=== PATIENT | female | born 1990 ===

== ENCOUNTER 2024-07-01 07:29 | Outpatient (CLI) | payer OTHER, MEDICAID, SELFPAY ==
--- NOTE | 2024-07-01 07:34 | USR_ITS ---
PROCEDURE INFORMATION: Exam: US After First Trimester, Transabdominal Exam date and time: 07/01/2024 7:54 AM Age: 33 years old Clinical indication: Screening exam; Routine US, uterus; Additional info: Anatomy check/supervision of normal first /2nd trim LABS AND CLINICAL REPORTS: Last menstrual period start date: 02/05/2024 Gestational age (Established): 21 w 0 d Estimated due date (Established): 11/11/2024 TECHNIQUE: Imaging protocol: Real-time transabdominal obstetrical ultrasound of the maternal pelvis and a second or third trimester with image documentation. COMPARISON: No relevant prior studies available. FINDINGS: Gestation: Single live intrauterine gestation. heart rate: 142 bpm. presentation and position: Breech. Placenta: Unremarkable. No subchorionic bleed. Placenta is anterior. Amniotic fluid (Qualitative): Amniotic fluid is normal for gestational age. ANATOMY: midline falx: Normal cerebellum: Normal lateral ventricles: Normal cisterna magna: Normal choroid plexus: Normal face: Normal heart four-chamber view, heart size and position: Normal heart right ventricular outflow tract: Normal heart left ventricular outflow tract: Normal kidneys: Normal stomach: Normal urinary bladder: Normal spine: Normal Umbilical cord and insertion: Normal. Normal 3 vessel cord upper limbs: Normal lower limbs: Normal external genitalia: Normal BIOMETRY: Gestational age (AUA): 21 weeks 1 day Estimated due date (AUA): 11/10/2024 Estimated weight: 404.81 g. EFW by AC, BPD, FL, HC, [place] 1985, 55% Biparietal diameter (BPD): 5.04 cm. EGA (BPD) is 21 w 2 d. 59.9 % percentile Head circumference (HC): 18.88 cm. EGA (HC) is 21 w 1 d. 48.4 % percentile Abdominal circumference (AC): 16.2 cm. EGA (AC) is 21 w 2 d. 52.7 % percentile Femur length (FL): 3.5 cm. EGA (FL) is 21 w 0 d. 42.4 % percentile HC/AC: 1.17. (Normal range: 1.06 - 1.25) FL/HC: 18.54. (Normal range: 16.26 - 20.29) FL/BPD: 69.44 FL/AC: 21.6. (Normal range: 20 - 24) MATERNAL: Uterus: Unremarkable. Cervix: Cervical length measures 4.7 cm. Right ovary/adnexa: Obscured by lack of adequate acoustic window. Left ovary/adnexa: Obscured by lack of adequate acoustic window. Intraperitoneal space: No intraperitoneal free fluid. US/US OB >= 14 weeks fetus [id number] IMPRESSION: Single live intrauterine gestation with estimated age of 21 weeks 1 day and weight of 404.81 g.
== END 2024-07-01 07:30 | disposition home or self-care (01) ==
LOC: RAD 07:29
PROVIDERS: Visit Provider Family Medicine
DX: Z34.02 Encounter for supervision of normal first pregnancy, second trimester (principal)
CPT/HCPCS: 76805

== ENCOUNTER 2024-10-16 00:29 | Inpatient (IN) | payer BC, MEDICAID, SELFPAY ==
[2024-10-15 22:35] VITALS: BMI 27.3
[2024-10-15 22:47] VITALS: BP 135/84; PULSE 68
[2024-10-15 22:58] VITALS: BP 131/86; PULSE 61
--- NOTE | 2024-10-15 23:16 | P.HP_ITS ---
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 Complains of contractions starting shortly after rupture of membranes. Contractions have become stronger and are approximately every 4-5 minutes. Denies vaginal bleeding. Good movement. 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 course complicated by failed 1 hr GTT with passed 3hr GTT. care was good and starting in first trimester- presented as transfer of care from [place], [place] Labs Blood type OB HPI: O (+) positive Rubella: Immune RPR: Negative GBS: Unknown HBsAG: Negative Other Lab Information: Ab screen negative HIV negative HCV Ab negative INitial H/H 14.1/41.3 Pap smear NILM, HPV negative 1hr GTT failed (163) 3hr GTT passed (89, 84, 125, 88) 3rd trimester H/H 12.8/37.0 Anatomy US- EFW 55% Review of Systems 2 Const: Denies: fever(s) or chills Card: Denies: chest pain or palpitations Resp: Denies: dyspnea or wheezing GI: Reports: nausea and vomiting Medications/Allergies Allergies Allergy/AdvReac Type Severity Reaction Status Date / Time No Known Allergies Allergy Verified 10/15/24 23:39 History History History 2 1 Term 0 0 Miscarriages/Ectopic 0 Living Children 0 Vitals/I&O/Wt Last Vital Signs Pulse 61 10/15/24 22:58 BP 131/86 10/15/24 22:58 Physical Exam 2 Const: COMMON NORMALS: no acute distress, healthy appearing and alert Resp: COMMON NORMALS: normal respiratory effort and clear to auscultation bilaterally Cardio: COMMON NORMALS: regular rate, regular rhythm, S1 normal heart sound present, S2 normal heart sound present and No murmurs present (Cardio) GI: OTHER: gravid S=D Extremity: NARRATIVE EXTREMITY EXAM: No LE edema Data 10/15/24 23:55 Results Labs OB ([facility]): 2 Blood Type Pending 10/15/24 Antibody Screen Pending 10/15/24 Hct 37.5 % (36-47) 10/15/24 Hgb 13.30 g/dL (11.27-16.99) 10/15/24 Rho(D) Type Pending 10/15/24 Plt Count 164 10^3/cmm (157-399) 10/15/24 A&P Assessment and plan (1) premature rupture of membranes: Plan 33yo at 36w1d admitted for PPROM. Initial SVE 4.5/95/-2 per RN Category I FHT, [place] q3-4 ctx Routine CBC, blood typing. Fentanyl protocol, may have epidural if desired. Intermittent EFM as long as Category I and unless Continuous EFM indicated GBS ppx due to GBS unknown and <37 weeks. Expectant management- discussed plan of care with patient and agreeable to proceed. Attestations 2 Medical Necessity Statement*: Mya Mirta Mcdaniel's hospital stay will require greater than 2 midnights for labor and delivery and care. Coding Level of Care Code Acute Code for Chg Fwd Diagnoses premature rupture of membranes O42.919
[2024-10-15 23:29] VITALS: BP 132/79; PULSE 81
[2024-10-16] VITALS (22 sets, daily range): BP systolic 100–142; BP diastolic 51–85; PULSE 60–89; RESP 14–18; TEMP 36.7–36.9; O2SAT 96; BMI 27.3
[2024-10-16 00:21] LABS: Basophils % 0.2 %; Eosinophils # 0.1 10^3/uL (0.0-0.8); Hematocrit 37.5 % (36-47); Lymphocytes # 1.8 10^3/uL (0.8-4.8); Lymphocytes % 15.9 %; Mean Corpuscular HGB Conc 35.5 g/dL (30-55); Mean Corpuscular Hemoglobin 31.4 pg (27-33); Mean Corpuscular Volume 88.4 fl (85-98); Mean Platelet Volume 11.5 fL (7.4-10.4); Monocytes # 0.4 10^3/uL (0.2-0.9); Monocytes % 3.8 %; Neutrophils # 8.77 10^3/uL (1.8-7.7); Neutrophils % 78.7 %; Nucleated Red Blood Cells % 0 %; Platelet Count 164 10^3/cmm (157-399); Red Blood Count 4.24 10^6/uL (3.85-5.65); Red Cell Distribution Width 12.6 % (12.1-15.1); White Blood Count 11.14 10^3/uL (3.29-11.43)
[2024-10-16] MEDS: oxytocin 30 UNIT/500 ML BAG 600 UNIT IV (05:46)
[2024-10-16] MEDS: dextrose 5%-sod chloride 0.45% 1,000 ML 125 ML IV (05:46)
[2024-10-16] MEDS: lidocaine 2% INJ 20 mL INJECTION (05:47)
--- NOTE | 2024-10-16 06:14 | P.PCNOB_ITS ---
Delivery Note: Date of delivery: October 16, 2024 Pre-delivery diagnoses: PPROM Post-delivery diagnoses: delivery of viable male Procedure: Spontaneous vaginal delivery Delivering Physician: Nayely Frances DO Estimated blood loss (mL): 150 Pre-Delivery Course: Admitted on 11/11/2024 after SROM at home at 2030. Of note after initial admission note patient declined GBS prophylaxis after discussion of risks and benefits. Initial SVE 4.5/95/-2 and she progressed appropriately to complete. Delivery: Patient progressed to complete. Patient placed in lithotomy position. Patient pushed with adequate effort. Head delivered in CECILY position, tight nuchal cord was present and unable to be reduced and was delivered through. Shoulders and rest of body delivered without difficulty with no anesthesia. Cord reduced after delivery. Mouth and nares bulb suctioned. Cord clamped and cut after 1 minute delay. placed on maternal abdomen. Placenta spontaneously delivered and noted to be intact. Pitocin started. Fundus was noted to be firm with massage. The vagina and cervix were inspected and right first-degree periurethral and midline first-degree lacerations were noted. Repaired with 3-0 Vicryl. Fundus was again noted to be firm. Male born at 0537 with 8/9 weighing 2500 g and measuring 19 inches in length, 12.25 head circumference and 11.5 chest circumference. Placenta noted to be intact with centrally inserted umbilical cord with three- vessel cord. Complications: Maternal none Infant none History History History 1 Term 0 1 Miscarriages/Ectopic 0 Living Children 1 A&P Assessment and plan (1) Spontaneous vaginal delivery: (2) delivery: Coding Level of Care Code Acute Code for Chg Fwd Diagnoses Spontaneous vaginal delivery O80 delivery O60.10X0
[2024-10-16] MEDS: ibuprofen 800 mg tablet PO ×2 (08:27→20:48)
[2024-10-16] MEDS: benzocaine-menthol 78 gm Canister 1 SPRAY TOPICAL (08:27)
[2024-10-16] MEDS: docusate sodium 100 mg Capsule PO ×2 (08:27→20:48)
[2024-10-16] MEDS: PRENATAL VIT NO.130/IRON/FOLIC 1 EACH TABLET PO (08:27)
[2024-10-16 17:23] LABS: Hematocrit 34.1 % (36-47); Mean Corpuscular HGB Conc 34.3 g/dL (30-55); Mean Corpuscular Volume 90.5 fl (85-98); Mean Platelet Volume 11.2 fL (7.4-10.4); Platelet Count 152 10^3/cmm (157-399); Red Blood Count 3.77 10^6/uL (3.85-5.65); White Blood Count 12.11 10^3/uL (3.29-11.43)
[2024-10-17 06:29] VITALS: BP 126/79; PULSE 80; RESP 16; O2SAT 97
[2024-10-17] MEDS: ibuprofen 800 mg tablet PO ×3 (09:46→21:34)
[2024-10-17] MEDS: docusate sodium 100 mg Capsule PO (09:46)
[2024-10-17] MEDS: PRENATAL VIT NO.130/IRON/FOLIC 1 EACH TABLET PO (09:46)
[2024-10-17 11:00] VITALS: BP 98/59; PULSE 65; RESP 15; TEMP 37.1
--- NOTE | 2024-10-17 12:56 | P.PN_ITS ---
SUPERVISOR MAINTENANCE Subjective 2 Subjective: Interval history: Doing well overnight. Reports bleeding is minimal. She has some soreness but otherwise her pain is well-controlled. She is breast-feeding but has had some difficulty with latching and is syringe feeding but does report baby had a tongue-tie and that was clipped today. Reports normal urination and bowel movement. Vitals/I&O/Wt Last Vital Signs Temp 98.8 F 10/17/24 11:00 Pulse 65 10/17/24 11:00 Resp 15 10/17/24 11:00 BP 98/59 10/17/24 11:00 Pulse Ox 97 10/17/24 06:29 O2 Del Method Room Air 10/17/24 06:29 Weight last 48 hrs Weight 140 lb Weight 140 lb Physical Exam 2 Const: COMMON NORMALS: no acute distress, healthy appearing and alert Resp: COMMON NORMALS: normal respiratory effort and clear to auscultation bilaterally AUSCULTATION: clear to auscultation bilaterally Cardio: COMMON NORMALS: regular rate, regular rhythm, S1 normal heart sound present, S2 normal heart sound present and No murmurs present (Cardio) RATE: regular rate RHYTHM: regular rhythm HEART SOUNDS: S1 normal heart sound present and S2 normal heart sound present : OTHER: Uterine fundus firm and below the umbilicus Extremity: NARRATIVE EXTREMITY EXAM: No LE edema Neuro: SENSORIUM/ORIENTATION: Yes alert Data 10/16/24 17:10 A&P Assessment and plan (1) Spontaneous vaginal delivery: (2) delivery: Plan 33-year-old G1 now P1 status post spontaneous vaginal delivery without complication, day #1. hemoglobin 11.7 from 13.3 on admission and IV has been discontinued. Encourage ambulation, normal diet. May shower. Routine care. Anticipate discharge home tomorrow. Attestations 2 Medical Necessity Statement*: Mya Mcdaniel's hospital stay will require greater than 2 midnights for labor and delivery and care. Coding Level of Care Code Acute Code for Chg Fwd Diagnoses Spontaneous vaginal delivery O80 delivery O60.10X0
[2024-10-17 18:18] VITALS: BP 106/68; PULSE 74; RESP 18
[2024-10-17 21:35] VITALS: BP 118/71; PULSE 78; RESP 16; TEMP 36.8; O2SAT 98
[2024-10-18 04:14] VITALS: BP 120/78; PULSE 72; RESP 16; TEMP 36.4; O2SAT 99
--- NOTE | 2024-10-18 07:38 | P.DS_ITS ---
Discharge Providers IMAGING TECHNICIAN Date of Admission: 10/16/24 00:29 Date of Discharge: 10/18/24 Attending Provider at Admission: Nayely Frances DO Attending Provider at Discharge: Nayely Frances DO Diagnoses at Discharge Discharge Diagnosis (1) Spontaneous vaginal delivery: Status: Acute (2) delivery: Status: Acute Reason for Visit Reason for Visit: contractions, possible ROM Hospital Course Hospital Course Pre-Delivery Course: Admitted on 10/15/2024 after SROM at home at 2030. Of note after initial admission note patient declined GBS prophylaxis after discussion of risks and benefits. Initial SVE 4.5/95/-2 and she progressed appropriately to complete. Delivery: Patient progressed to complete. Patient placed in lithotomy position. Patient pushed with adequate effort. Head delivered in CECILY position, tight nuchal cord was present and unable to be reduced and was delivered through. Shoulders and rest of body delivered without difficulty with no anesthesia. Cord reduced after delivery. Mouth and nares bulb suctioned. Cord clamped and cut after 1 minute delay. placed on maternal abdomen. Placenta spontaneously delivered and noted to be intact. Pitocin started. Fundus was noted to be firm with massage. The vagina and cervix were inspected and right first-degree periurethral and midline first-degree lacerations were noted. Repaired with 3-0 Vicryl. Fundus was again noted to be firm. Male born at 0537 with 8/9 weighing 2500 g and measuring 19 inches in length, 12.25 head circumference and 11.5 chest circumference. Placenta noted to be intact with centrally inserted umbilical cord with three- vessel cord. Complications: Maternal none none course: Patient underwent on 10/16/24. course was uncomplicated. Following delivery patient ambulated well, tolerated a normal diet without nausea or vomiting. Pain was well-controlled on PO medications, with some difficulty latching, no leg/calf pain, no calf/leg swelling, normal urination, passing gas and normal bowel movements. Vaginal bleeding thin lochia and decreasing. labs significant for hemoglobin of 11.7 down from 13.3 on admission. Follow-up planned for 2 and 6 weeks . Warning signs for endometritis, pre-eclampsia, DVT/PE, mastitis were reviewed, discussed additional warning signs including increased vaginal bleeding, worsening abdominal pain. Pelvic rest and activity precautions reviewed as well. She is discharged on 10/18/24 in stable condition. Information Peripartum Data: Delivery Method: Vaginal Physical Exam Const: COMMON NORMALS: no acute distress, healthy appearing and alert Resp: COMMON NORMALS: normal respiratory effort and clear to auscultation bilaterally AUSCULTATION: clear to auscultation bilaterally Cardio: COMMON NORMALS: regular rate, regular rhythm, S1 normal heart sound present, S2 normal heart sound present and No murmurs present (Cardio) RATE: regular rate RHYTHM: regular rhythm HEART SOUNDS: S1 normal heart sound present and S2 normal heart sound present : OTHER: Uterine fundus firm and below the umbilicus Extremity: NARRATIVE EXTREMITY EXAM: No LE edema Neuro: SENSORIUM/ORIENTATION: Yes alert History History History 1 Term 0 1 Miscarriages/Ectopic 0 Living Children 1 Discharge Data Studies Completed and Pending Pending at discharge Category Date Time Status Retype for Patiets ABO/Rh Routine Lab 10/16/24 17:10 Received Laboratory Results WBC 12.11 10^3/uL (3.29-11.43) H 10/16/24 17:10 Corrected WBC Cancelled 10/15/24 23:18 RBC 3.77 10^6/uL (3.85-5.65) L 10/16/24 17:10 Hgb 11.70 g/dL (11.27-16.99) 10/16/24 17:10 Hct 34.1 % (36-47) L 10/16/24 17:10 MCV 90.5 fl (85-98) 10/16/24 17:10 MCH 31.0 pg (27-33) 10/16/24 17:10 MCHC 34.3 g/dL (30-55) 10/16/24 17:10 RDW 13.0 % (12.1-15.1) 10/16/24 17:10 Plt Count 152 10^3/cmm (157-399) L 10/16/24 17:10 MPV 11.2 fL (7.4-10.4) H 10/16/24 17:10 Gran % Cancelled 10/15/24 23:18 Neut % (Auto) 78.7 % 10/15/24 23:55 Lymph % (Auto) 15.9 % 10/15/24 23:55 [place] % (Auto) 3.8 % 10/15/24 23:55 Eos % (Auto) 1.0 % 10/15/24 23:55 Baso % (Auto) 0.2 % 10/15/24 23:55 Neut # (Auto) 8.77 10^3/uL (1.8-7.7) H 10/15/24 23:55 Lymph # (Auto) 1.8 10^3/uL (0.8-4.8) 10/15/24 23:55 [place] # (Auto) 0.4 10^3/uL (0.2-0.9) 10/15/24 23:55 Eos # (Auto) 0.1 10^3/uL (0.0-0.8) 10/15/24 23:55 Baso # (Auto) 0.0 10^3/uL (0.0-0.1) 10/15/24 23:55 Absolute Gran (auto) Cancelled 10/15/24 23:18 Nucleated RBC % (auto) 0 % 10/15/24 23:55 Nucleated RBCs # 0.0 /100WBC 10/15/24 23:55 Blood Type O Positive 10/15/24 23:55 Rho(D) Type Rh positive 10/15/24 23:55 Antibody Screen Negative 10/15/24 23:55 Vitals Last Vital Signs Temp 97.6 F 10/18/24 04:14 Pulse 72 10/18/24 04:14 Resp 16 10/18/24 04:14 BP 120/78 10/18/24 04:14 Pulse Ox 99 10/18/24 04:14 O2 Del Method Room Air 10/18/24 04:14 Results Labs OB ([facility]): Blood Type O Positive 10/15/24 Antibody Screen Negative 10/15/24 Hct 34.1 % (36-47) L 10/16/24 Hgb 11.70 g/dL (11.27-16.99) 10/16/24 Rho(D) Type Rh positive 10/15/24 Plt Count 152 10^3/cmm (157-399) L 10/16/24 Discharge Plan Discharge Patient Disposition: Home Condition: Stable Prescriptions: New ibuprofen 800 mg Tablet 800 mg PO TID Qty: 90 0RF docusate sodium 100 mg Capsule 100 mg PO BID Qty: 60 0RF Discharge Orders: Discharge Order (Routine); Ordered 10/18/24 Ordered By: Nayely Frances Referrals: Nayely Frances DO [Physician] - 11/02/24 2:45 pm (* Your 2 week appointment is with Dr. Frances on 11/02/2023 2:45pm * Your 6 week appointment is 12/07/2023 at 3:00pm) Discharge Diet: Usual diet Discharge Activity: Increase activity as tolerated Patient Instructions: Depression (DC), Preeclampsia and Eclampsia After Delivery (GEN), Hemorrhage (DC), OB Discharge Report, OB Food/Drug Interaction Guide, Opioid Safety, OB Home Care, OB Vaginal Deliveries, Abnormal Bleeding Activity Restrictions/Additional Instructions: Pelvic rest for 6 weeks. Follow-up with Dr. Frances at 2 and 6 weeks . Discharge Attestations IMAGING TECHNICIAN Time Spent in Discharge Care*: greater than 30 min Coding Level of Care Code Acute Code for Chg Fwd Diagnoses Spontaneous vaginal delivery O80 delivery O60.10X0
[2024-10-18] MEDS: PRENATAL VIT NO.130/IRON/FOLIC 1 EACH TABLET PO (09:32)
[2024-10-18] MEDS: docusate sodium 100 mg Capsule PO (09:32)
[2024-10-18] MEDS: ibuprofen 800 mg tablet PO (09:32)
[2024-10-18 09:33] VITALS: BP 115/67; PULSE 72; RESP 15; TEMP 36.4; O2SAT 99
[2024-10-18 14:10] VITALS: BP 116/70; PULSE 70; RESP 15; TEMP 36.6; O2SAT 99
[2024-10-18 14:20] VITALS: BP 116/70; PULSE 70; RESP 15; TEMP 36.6; O2SAT 99
== END 2024-10-18 14:20 | disposition home or self-care (01) | DRG 807 ==
LOC: OPOB 00:29 → OBGYN 00:29
PROVIDERS: Admitting Provider Family Medicine; Visit Provider Family Medicine
DX: O60.14X0 Preterm labor third trimester with preterm delivery third trimester, not applicable or unspecified (principal); Z37.0 Single live birth; Z3A.36 36 weeks gestation of pregnancy; O69.1XX0 Labor and delivery complicated by cord around neck, with compression, not applicable or unspecified; O42.013 Preterm premature rupture of membranes, onset of labor within 24 hours of rupture, third trimester
CPT/HCPCS: 36415; 59025; 59409; 83986; 85025; 85027; 86850; 86900; 99211; J2590; J7799